=== PATIENT | female | born 1980 | race Caucasian/White ===

== ENCOUNTER 2017-08-20 19:04 | Emergency (ER) | payer OTHER ==
[~2017-08-20] VITALS: Ht 160 cm; Wt 79.4 kg
--- NOTE | 2017-08-20 21:32 | ED GENERAL ADULT ---
History of Present Illness General Chief Complaint: General Adult Stated Complaint: MID BACK PAIN Source: patient Exam Limitations: no limitations Vital Signs & Intake/Output Vital Signs & Intake/Output Vital Signs Date Time Temp Pulse Resp B/P B/P Pulse O2 O2 Flow FiO2 Mean Ox Delivery Rate 08/20 2312 98.6 90 20 135/88 99 Room Air 08/20 1909 98.4 99 18 142/91 98 Room Air ED Intake and Output 08/21 0000 08/20 1200 Intake Total Output Total Balance Patient 175 lb Weight Weight Reported by Patient Measurement Method Allergies Coded Allergies: No Known Allergies (08/20/17) Reconcile Medications Ibuprofen 800 MG TABLET 1 TAB PO TID PRN PAIN Tylenol With Codeine (Tylenol With Codeine #3 Tablet) 300 MG-30 MG TABLET 1 TAB PO Q4-6 PRN PRN PAIN Triage Note: 37 YO FEMALE TO TRIAGE FOR EVAL OF MID BACK PAIN ON THE L SIDE THAT HAS BEEN ON/OFF SINCE LAST YEAR. DENIES SOB/CP. DENIES ABD PAIN. Triage Nurses Notes Reviewed? yes Onset: Abrupt Duration: day(s): (1), changing over time, continues in ED Timing: recent history Injury Environment: home Severity: mild, moderate Severity Numbers: 2 No Modifying Factors: none Associated Symptoms: back pain LMP (ages 10-50): unknown : No Patient currently breastfeeds: No HPI: 37-year-old female history of GERD and hypothyroidism present for evaluation of back pain. Patient states that this is her third episode of back pain over the past year. She states that the pain is located in her inferior thoracic back and does not radiate. States that the pain is present only with certain positioning and movement. There is no trauma or triggering event. Currently she is completely asymptomatic as she is sitting still. This is similar to previous episodes. She denies any other associated symptoms including chest pain shortness of breath abdominal pain numbness tingling or hemoptysis lower extremity edema or recent surgery. She does not use control. She is not taking any medicine for this. (Bimal Hanley) Past History Travel History Traveled to [place] past 21 day No Medical History Any Pertinent Medical History? 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 No (Bimal Hanley) Review of Systems Review of Systems Constitutional: Reports: no symptoms. EENTM: Reports: no symptoms. Respiratory: Reports: no symptoms. Cardiovascular: Reports: no symptoms. GI: Reports: no symptoms. Genitourinary: Reports: no symptoms. Musculoskeletal: Reports: see HPI, back pain. Skin: Reports: no symptoms. Neurological/Psychological: Reports: no symptoms. Hematologic/Endocrine: Reports: no symptoms. Immunologic/Allergic: Reports: no symptoms. All Other Systems: Reviewed and Negative (Bimal Hanley) Physical Exam Physical Exam General Appearance: well developed/nourished, no apparent distress, alert, awake Head: atraumatic, normal appearance Eyes: Bilateral: normal appearance, EOMI. Ears, Nose, Throat: hearing grossly normal Neck: normal inspection, supple, full range of motion, no midline tenderness Respiratory: normal breath sounds Cardiovascular: regular rate/rhythm, normal peripheral pulses Peripheral Pulses: 2+ radial (R), 2+ radial (L) Gastrointestinal: soft, non-tender Back: normal inspection, normal range of motion, thoracic paraspinous muscles tender to palpation on the left side. No bruising swelling or abrasions or step-offs or deformities. Range of motion intact. This pain is reproducible with movement Extremities: normal inspection, normal range of motion, no edema Neurologic/Psych: no motor/sensory deficits, awake, alert, oriented x 3, normal gait Skin: intact, normal color, warm/dry Lymphatic: no anterior cervical yasmin Core Measures ACS in differential dx? No CVA/TIA Diagnosis: No Sepsis Present: No Sepsis Focused Exam Completed? No (Bimal Hanley) Progress Differential Diagnoses I considered the following diagnoses in my evaluation of the patient: [ Musculoskeletal strain, herniated disc, pneumonia, aortic dissection, PE] Plan of Care: Orders Procedure Date/time Status URINE 08/21 1947 Complete URINALYSIS 08/21 1947 Complete Laboratory Tests 08/20/17 2016: Urine Color YEL, Urine Clarity CLEAR, Urine pH 6.0, Ur Specific [place] 1.015, Urine Protein NEG, Urine Ketones NEG, Urine Nitrite NEG, Urine Bilirubin NEG, Urine Urobilinogen 0.2, Ur Leukocyte Esterase TRACE H, Ur Microscopic SEDIMENT EXAMINED, Urine RBC RARE, Urine WBC RARE, Ur Epithelial Cells FEW, Urine Bacteria FEW H, Urine Hemoglobin NEG, Urine Glucose NEG, Urine Test NEGATIVE Patient seen and evaluated. She is here with thoracic back pain. She's had similar episodes in the past. Currently when she is not moving she is completely asymptomatic. The pain is only present with movement and certain positions or palpation. Suspect this is musculoskeletal in nature. Chest x-ray thoracic spine x-rays ordered patient medicated with Toradol will reassess. X-rays are negative. Patient reports she remains asymptomatic at rest and that her pain has improved significantly after Toradol. Vital signs are stable perc score negative. Discussed return precautions in detail. Advised her to continue ibuprofen and Tylenol with codeine as needed. Patient agrees the plan Diagnostic Imaging: Viewed by Me: Radiology Read. Discussed w/RAD: Radiology Read. Radiology Impression: PATIENT: GALLO BURGOS PRESENT AGE: 37 PATIENT ACCOUNT NO: [id number] : 81 LOCATION: [facility] ORDERING PHYSICIAN: Bimal WINTER SERVICE DATE: 08/20/17 EXAM TYPE: RAD - XRY- THORACIC SPINE EXAMINATION: XR THORACIC SPINE CLINICAL INFORMATION: Fracture herniated disc. Thoracic back pain. COMPARISON: None TECHNIQUE: 3 views of the thoracic spine were obtained. FINDINGS: The thoracic vertebral bodies maintain normal heights and alignment. There is minimal dextroscoliotic curvature in the upper thoracic spine. The disc heights are maintained. No fracture is seen. There are cholecystectomy clips in the right upper quadrant. IMPRESSION: No thoracic spine fracture or malalignment. No significant degenerative changes. DICTATED BY: Flory Paige MD DATE/TIME DICTATED:08/20/172223 MEDICAID SPECIALIST:LLUVIA DATE/TIME TRANSCRIBED:08/20/172223 CONFIDENTIAL, DO NOT COPY WITHOUT APPROPRIATE AUTHORIZATION. <Electronically signed in Other Vendor System> SIGNED BY: Flory Paige MD 08/20/172228, PATIENT: GALLO BURGOS PRESENT AGE: 37 PATIENT ACCOUNT NO: [id number] : 81 LOCATION: [facility] ORDERING PHYSICIAN: Biaml WINTER SERVICE DATE: 08/20/17 EXAM TYPE: RAD - XRY-CHEST XRAY, TWO VIEWS EXAMINATION: XR CHEST CLINICAL INFORMATION: Widened mediastinum. Thoracic back pain. COMPARISON: None TECHNIQUE: 2 views of the chest were obtained. FINDINGS: The lungs are grossly clear without consolidation, edema, or effusion. No pneumothorax. The cardiomediastinal contours appear normal. The osseous structures are intact. IMPRESSION: No active disease in the chest. Normal cardiomediastinal contours. DICTATED BY: Flory Paige MD DATE/TIME DICTATED: 08/20/172221 MEDICAID SPECIALIST:LLUVIA DATE/TIME TRANSCRIBED:08/20/172221 CONFIDENTIAL, DO NOT COPY WITHOUT APPROPRIATE AUTHORIZATION. <Electronically signed in Other Vendor System> SIGNED BY: Flory Paige MD 08/20/172226 Initial ED EKG: none (Bimal Hanley) Departure Departure Disposition: HOME OR SELF CARE Condition: Stable Clinical Impression Primary Impression: Back pain Qualifiers: Back pain location: thoracic back pain Chronicity: acute Back pain laterality: bilateral Qualified Code: M54.6 - Pain in thoracic spine Referrals: Jovanny Corbin MD (PCP/Family) Additional Instructions: Ibuprofen and Tylenol with Codeine as needed for pain. Follow-up with her primary care doctor. Monitor symptoms and return with any concerns. Departure Forms: Customer Survey General Discharge Information Prescriptions: Current Visit Scripts Ibuprofen 1 TAB PO TID PRN PAIN #30 TAB Tylenol With Codeine (Tylenol With Codeine #3 Tablet) 1 TAB PO Q4-6 PRN PRN PAIN #10 TAB (Bimal Hanley) PA/CLERK RATING Co-Sign Statement Statement: ED Attending supervision documentation- [] I saw and evaluated the patient. I have also reviewed all the pertinent lab results and diagnostic results. I agree with the findings and the plan of care as documented in the PA's/CLERK RATING's documentation. [x] I have reviewed the ED Record and agree with the PA's/CLERK RATING's documentation. [] Additions or exceptions (if any) to the PAs/CLERK RATING's note and plan are summarized below: [] (Devon HERNANDEZ,[place]ino Schwarz) Critical Care Note Critical Care Note Critical Care Time: non-applicable (Bimal Hanley)
--- NOTE | 2017-08-20 22:27 | RADIOLOGY REPORT ---
EXAMINATION: XR CHEST CLINICAL INFORMATION: Widened mediastinum. Thoracic back pain. COMPARISON: None TECHNIQUE: 2 views of the chest were obtained. FINDINGS: The lungs are grossly clear without consolidation, edema, or effusion. No pneumothorax. The cardiomediastinal contours appear normal. The osseous structures are intact. IMPRESSION: No active disease in the chest. Normal cardiomediastinal contours.
--- NOTE | 2017-08-20 22:29 | RADIOLOGY REPORT ---
EXAMINATION: XR THORACIC SPINE CLINICAL INFORMATION: Fracture herniated disc. Thoracic back pain. COMPARISON: None TECHNIQUE: 3 views of the thoracic spine were obtained. FINDINGS: The thoracic vertebral bodies maintain normal heights and alignment. There is minimal dextroscoliotic curvature in the upper thoracic spine. The disc heights are maintained. No fracture is seen. There are cholecystectomy clips in the right upper quadrant. IMPRESSION: No thoracic spine fracture or malalignment. No significant degenerative changes.
[2017-08-20] MEDS ORDERED: TYLENOL WITH C1 EACH PO (23:11)
[2017-08-20] MEDS ORDERED: IBUPROFEN800 M1 PO (23:11)
[2017-08-20 23:12] VITALS: BP 135/88
== END 2017-08-20 23:13 ==
LOC: ERH 19:04
DX: M54.9 Dorsalgia, unspecified (principal)
CPT/HCPCS: 71046; 72070; 81001; 81025; 96372; J1885